=== PATIENT | male | born 1950 | race Caucasian/White ===

== ENCOUNTER 2019-07-15 05:56 | Observation (INO) | payer MEDICARE ==
[~2019-07-15] VITALS: Ht 188 cm; Wt 107.0 kg
[2019-07-15] MEDS ORDERED: SODIUM CHLORIDE 0.9% 1,000 ML IV SCH ×2 (06:07→06:30)
[2019-07-15 06:25] VITALS: BP 151/97
[2019-07-15] MEDS ORDERED: FURO40TA6 PO (06:38)
[2019-07-15] MEDS ORDERED: AMIO200T42 PO (06:38)
[2019-07-15] MEDS ORDERED: CARV25TA12 PO (06:38)
[2019-07-15] MEDS ORDERED: POTA20TA6 PO (06:38)
[2019-07-15] MEDS ORDERED: ASPI81TA45 PO (06:38)
[2019-07-15] MEDS ORDERED: RIVA15TA PO (06:38)
[2019-07-15] MEDS ORDERED: LEVO88TA4 PO (06:38)
[2019-07-15] MEDS ORDERED: ATOR40TA78 PO (06:38)
[2019-07-15] MEDS ORDERED: ALLO100T30 PO (06:38)
[2019-07-15] MEDS ORDERED: FENTANYL PF 250 MCG/5ML ONE (07:36)
[2019-07-15] MEDS ORDERED: MIDAZOLAM 1 MG/ML, 2ML ONE (07:36)
[2019-07-15] MEDS ORDERED: PROPOFOL 50 ML ONE (07:36)
[2019-07-15] MEDS ORDERED: LIDOCAINE 1%, 20ML ONE (07:45)
[2019-07-15] MEDS ORDERED: ROCURONIUM 10MG/ML,5ML ONE (08:54)
[2019-07-15] MEDS ORDERED: HEPARIN 1,000 UNITS/ML, 10ML ONE ×3 (08:54→09:19)
[2019-07-15] MEDS ORDERED: SUCCINYLCHOLINE 20 MG/ML, 10ML ONE (08:54)
[2019-07-15] MEDS ORDERED: DEXAMETHASONE 4 MG/ML, 1ML ONE (08:55)
[2019-07-15] MEDS ORDERED: ONDANSETRON 2MG/ML, 2ML ONE (08:55)
[2019-07-15] MEDS ORDERED: PROMETHAZINE 25 MG/ML, 1ML IV PRN (11:00)
[2019-07-15] MEDS ORDERED: ONDANSETRON 2MG/ML, 2ML IV PRN (11:00)
[2019-07-15] MEDS ORDERED: MIDAZOLAM 1 MG/ML, 2ML IV PRN (11:00)
[2019-07-15] MEDS ORDERED: hydrALAzine 20 MG/ML, 1ML IV PRN (11:00)
[2019-07-15] MEDS ORDERED: EPHEDRINE 50 MG/ML, 1ML IM PRN (11:00)
[2019-07-15] MEDS ORDERED: OXYcodone 5 MG/5 ML ORAL.SOL UDC PO PRN (11:00)
[2019-07-15] MEDS ORDERED: HYDROmorphone 2 MG/ML, 1ML IVPush PRN (11:00)
[2019-07-15] MEDS ORDERED: METOPROLOL 1 MG/ML, 5ML IV PRN (11:00)
[2019-07-15] MEDS ORDERED: EPHEDRINE 50 MG/ML, 1ML IVPush PRN (11:00)
[2019-07-15] MEDS ORDERED: DIPHENHYDRAMINE 50 MG/ML, 1ML IVPush PRN (11:00)
[2019-07-15] MEDS ORDERED: DIAZEPAM 5 MG/ML, 2ML IVPush PRN (11:00)
[2019-07-15] MEDS ORDERED: ONDANSETRON ODT 8 MG PO PRN (11:00)
[2019-07-15] MEDS ORDERED: ACETAMINOPHEN 325 MG TABLET PO PRN ×2 (11:00→12:00)
[2019-07-15] MEDS ORDERED: FENTANYL PF 100 MCG/2ML IV PRN (11:00)
[2019-07-15] MEDS: RIVAROXABAN 15 MG TABLET PO SCH (12:00)
[2019-07-15] MEDS ORDERED: ZOLPIDEM 5MG TABLET PO PRN (12:00)
[2019-07-15] MEDS ORDERED: FENTANYL PF 100 MCG/2ML ONE ×2 (14:04→15:15)
[2019-07-15] MEDS ORDERED: FENTANYL PF 100 MCG/2ML IVPush ONE ×2 (14:30→15:30)
[2019-07-15] MEDS: OXYcodone/APAP 5/325MG TABLET PO PRN ×2 (16:18→20:32)
[2019-07-15 16:25] VITALS: BP 107/70
[2019-07-15] MEDS: morphine SULFATE 10 MG/ML, 1ML IVPush PRN ×2 (17:28→19:12)
[2019-07-15 18:38] VITALS: BP 116/77
[2019-07-15] MEDS: ATORVASTATIN 40 MG TABLET PO SCH (20:32)
[2019-07-15] MEDS ORDERED: CARVEDILOL 25 MG TABLET PO SCH (21:00)
[2019-07-16] MEDS: OXYcodone/APAP 5/325MG TABLET PO PRN ×5 (00:37→20:11)
[2019-07-16 01:21] VITALS: BP 135/85
[2019-07-16] MEDS: LEVOTHYROXINE 88 MCG TABLET PO SCH (05:38)
[2019-07-16 07:18] VITALS: BP 127/75
[2019-07-16] MEDS ORDERED: ASPIRIN 81 MG TABLET EC PO SCH (09:00)
[2019-07-16] MEDS: POTASSIUM CHLORIDE 20 MEQ TAB.ER.PRT PO SCH (10:24)
[2019-07-16] MEDS: AMIODARONE 200 MG TABLET PO SCH (10:24)
[2019-07-16] MEDS: FUROSEMIDE 40 MG TABLET PO SCH (10:24)
[2019-07-16] MEDS: RIVAROXABAN 15 MG TABLET PO SCH (10:24)
[2019-07-16] MEDS: ALLOPURINOL 100 MG TABLET PO SCH (10:24)
[2019-07-16] MEDS ORDERED: CARVEDILOL 12.5 MG TABLET PO SCH (11:30)
[2019-07-16 12:05] VITALS: BP 117/68
[2019-07-16 18:58] VITALS: BP 140/69
[2019-07-16] MEDS: CARVEDILOL 12.5 MG TABLET PO SCH (20:11)
[2019-07-16] MEDS: ATORVASTATIN 40 MG TABLET PO SCH (20:11)
[2019-07-17 01:20] VITALS: BP 116/70
[2019-07-17] MEDS: OXYcodone/APAP 5/325MG TABLET PO PRN ×2 (02:54→08:23)
[2019-07-17] MEDS: LEVOTHYROXINE 88 MCG TABLET PO SCH (05:20)
[2019-07-17 07:44] VITALS: BP 125/72
[2019-07-17] MEDS ORDERED: OXYcodone/APAP 5/325MG PO (08:18)
[2019-07-17] MEDS ORDERED: CARV12.52 PO (08:18)
[2019-07-17] MEDS: POTASSIUM CHLORIDE 20 MEQ TAB.ER.PRT PO SCH (08:23)
[2019-07-17] MEDS: RIVAROXABAN 15 MG TABLET PO SCH (08:23)
[2019-07-17] MEDS: CARVEDILOL 12.5 MG TABLET PO SCH (08:23)
[2019-07-17] MEDS: FUROSEMIDE 40 MG TABLET PO SCH (08:23)
[2019-07-17] MEDS: AMIODARONE 200 MG TABLET PO SCH (08:23)
[2019-07-17] MEDS: ALLOPURINOL 100 MG TABLET PO SCH (08:23)
== END 2019-07-17 11:50 | disposition home or self-care (01) ==
LOC: CACL 05:56 → ORIP 11:33 → 5SO 15:56 → DCLOUNGE 07-17 11:40
PROVIDERS: ADMIT Internal Medicine Cardiovascular Disease; ATTEND Internal Medicine Cardiovascular Disease
DX: I48.91 Unspecified atrial fibrillation (principal); I42.9 Cardiomyopathy, unspecified; E03.9 Hypothyroidism, unspecified; E78.5 Hyperlipidemia, unspecified; D68.69 Other thrombophilia
CPT/HCPCS: 85347; 93306; 93312; 93321; 93325; 93613; 93656; 93662; 96374; 96375; 96376; C1730; C1732; C1759; C1766; C1893; C1894; G0378; J0330; J1100; J1644; J2250; J2270; J2405; J2704; J3010; J3490